=== PATIENT | male | born 1970 | race Caucasian/White ===

== ENCOUNTER 2018-10-15 21:20 | Observation (INO) | payer OTHER, SELFPAY ==
[2018-10-15 21:52] LABS: #Basophils 0.1 thou/uL (0.0-0.2); #Eosinphils 0.3 thou/uL (0.0-0.7); #Lymphocytes 3.9 thou/uL (1.20-3.40); #Monocytes 0.8 thou/uL (0.11-0.59); #Neutrophils 4.6 thou/uL (1.40-6.50); %Basophils 0.6 % (0.0-1.0); %Lymphocytes 40.6 % (21.0-51.0); %Monocytes 8.6 % (0.0-10.0); %Neutrophils 47.3 % (42.0-75.0); Hemoglobin 15.2 g/dL (14.0-18.0); Mean Corpuscular HGB CONC 33.5 g/dL (32.0-36.0); Mean Corpuscular Hemoglobin 27.4 pg (27.0-31.0); Mean Corpuscular Volume 81.8 fL (78.0-98.0); Mean Platelet Volume 8.4 fL (7.4-10.4); Platelet Count 188 thou/uL (130-400); RBC Distribution Width 12.6 % (11.5-14.5); Red Blood Cell (RBC) Count 5.53 mill/uL (4.70-6.10); White Blood Cell (WBC) Count 9.7 thou/uL (4.8-10.8)
[2018-10-15] MEDS ORDERED: Aspirin Chewable 81 MG TAB ONE (22:13)
[2018-10-15 22:15] LABS: ALT (SGPT) 41 U/L (8-55); AST (SGOT) 27 U/L (5-34); Albumin 4.4 g/dL (3.5-5.0); Alkaline Phosphatase 67 U/L (40-150); Anion Gap 13 mmol/L (10-20); BUN (Urea Nitrogen) 13 mg/dL (8.9-20.6); Bilirubin, Total 0.7 mg/dL (0.2-1.2); Calc. Creatinine Clearance 0 mL/min (70-130); Calcium 10.2 mg/dL (7.8-10.44); Carbon Dioxide 22 mmol/L (22-29); Chloride 107 mmol/L (98-107); Estimated GFR-MDRD 71; Globulin 2.9 g/dL (2.4-3.5); Glucose 204 mg/dL (70-105); Potassium 4.7 mmol/L (3.5-5.1); Protein, Total 7.3 g/dL (6.0-8.3); Sodium 137 mmol/L (136-145)
--- NOTE | 2018-10-15 22:56 | RAD ---
AP CHEST: 10/15/18 HISTORY: Chest pain. The lung ballesteros are clear. No infiltrate or vascular congestion. Heart size is normal. IMPRESSION: No acute finding. POS: OFF
[2018-10-16 00:36] VITALS: BMI 32.5
[2018-10-16] MEDS ORDERED: Dextrose 50% Abboject 50 ML SYRINGE SLOW IVP PRN (00:38)
[2018-10-16] MEDS ORDERED: HumaLOG 300 UNITS/3 ML VIAL SC PRN ×2 (00:38)
[2018-10-16] MEDS ORDERED: Dextrose 5% in Water 1,000 ML IV PRN (00:38)
[2018-10-16 01:35] LABS: Troponin I Less than 0.010 ng/mL (< 0.028)
[2018-10-16] MEDS ORDERED: Acetaminophen 650 MG Suppository PR PRN (01:55)
[2018-10-16] MEDS ORDERED: Acetaminophen 325 MG TAB PO PRN (01:55)
[2018-10-16] MEDS ORDERED: Sodium Chloride 0.9% 1,000 ML IV SCH (03:00)
[2018-10-16 03:48] LABS: #Eosinphils 0.3 thou/uL (0.0-0.7); #Lymphocytes 3.6 thou/uL (1.20-3.40); #Monocytes 0.7 thou/uL (0.11-0.59); #Neutrophils 3.8 thou/uL (1.40-6.50); %Basophils 0.1 % (0.0-1.0); %Eosinophils 3.2 % (0.0-10.0); %Monocytes 8.7 % (0.0-10.0); %Neutrophils 45.1 % (42.0-75.0); Hemoglobin 14.4 g/dL (14.0-18.0); Mean Corpuscular HGB CONC 34.9 g/dL (32.0-36.0); Mean Corpuscular Hemoglobin 27.9 pg (27.0-31.0); Mean Corpuscular Volume 79.9 fL (78.0-98.0); Platelet Count 173 thou/uL (130-400); RBC Distribution Width 12.3 % (11.5-14.5); Red Blood Cell (RBC) Count 5.15 mill/uL (4.70-6.10); White Blood Cell (WBC) Count 8.5 thou/uL (4.8-10.8)
[2018-10-16 03:56] LABS: Hemoglobin A1c 8.1 % (4.0-6.0)
[2018-10-16 04:06] LABS: Anion Gap 9 mmol/L (10-20); BUN (Urea Nitrogen) 16 mg/dL (8.9-20.6); Calc. Creatinine Clearance 137 mL/min (70-130); Calcium 10.2 mg/dL (7.8-10.44); Carbon Dioxide 25 mmol/L (22-29); Chloride 107 mmol/L (98-107); Estimated GFR-MDRD 80; Glucose 185 mg/dL (70-105); Potassium 4.1 mmol/L (3.5-5.1); Sodium 137 mmol/L (136-145)
--- NOTE | 2018-10-16 04:10 | HP ---
PRIMARY CARE PHYSICIAN: Chasidy Wade. CHIEF COMPLAINT: Chest pain and dizziness. HISTORY OF PRESENT ILLNESS: Mr. Salinas is a 48-year-old man who presents today after experiencing an episode of chest pain around 1:00 p.m., which lasted 4-5 seconds starting from the left side of his chest and coming briefly across to the right side of his chest. The patient states the pain is difficult to rate in terms of severity, but they eased and ranged at 4 for a couple of minutes before fully subsiding. He had a similar type of pain 1 week ago. The patient reports having intermittent episodes of dizziness, which has occurred a couple of times while he has been driving. Denies having any dizziness when standing and states it tends to happen suddenly. Today, it happened when he was making a turn while in the car. Unclear, if it has been associated with certain movements of his head or neck. He reports having mild headaches intermittently for the last couple of weeks. Today, the headaches have been mild, but constant. He denies having any vision disturbances or speech changes. Otherwise has been doing very well without complaints. Denies having fevers, chills, or sweats. No history of reports having a reduced appetite in recent days. No nausea or vomiting. No abdominal pain or cramping. No drastic weight changes. No urinary symptoms or bowel changes. The patient states when he was examined by the ED physician to have some nodularity or mass to the right side of his neck, which he had not noted previously. He states it is tender to palpation. The patient denies any difficulties with swallowing. ALLERGIES: NO KNOWN DRUG ALLERGIES. CURRENT MEDICATIONS: 1. Metformin. 2. Januvia. PAST MEDICAL HISTORY: Diabetes mellitus. PAST SURGICAL HISTORY: None. SOCIAL HISTORY: The patient reports social alcohol consumption. He denies any tobacco use or illicit drug use. PHYSICAL EXAMINATION: GENERAL: The patient appears well developed, well nourished, is in no acute distress. VITAL SIGNS: Temperature 97.3, pulse 80, respirations 18, blood pressure 121/85 , O2 sat 93% on room air. HEENT: Normocephalic and atraumatic. Pupils are equal, round and reactive to light. Sclerae without icterus. Oropharynx is clear. NEC: Notable for a nodularity in the right side of the lower neck, tender to palpation. Possibly representing cervical lymphadenopathy. The patient with slight soft tissue swelling noted in the right submandibular region at the angle of the jaw, nontender. LUNGS: Clear to auscultation bilaterally without any wheezes, rales, or rhonchi. CARDIAC: Regular rate and rhythm without audible murmurs, rubs, or gallops. ABDOMEN: Soft, nontender, nondistended. Normoactive bowel sounds present. No guarding or rigidity. No renal angle tenderness. EXTREMITIES: No lower leg swelling or edema. NEUROLOGIC: Alert and oriented x3. SKIN: No rash or jaundice. DIAGNOSTIC STUDIES: EKG done in the emergency room showed normal sinus rhythm with a heart rate of 86. LABORATORY DATA: Full blood count unremarkable. D-dimer was less than 0.27. Sodium 137, potassium 4.7, BUN 13, creatinine 1.11, GFR 71, calcium 10.2, total bilirubin 0.7, AST 27, ALT 31. Troponin negative x2. BNP 10.6. Albumin 4.4. IMAGING DATA: Chest x-ray showed no acute findings. IMPRESSION AND PLAN: Mr. Salinas is a pleasant 48-year-old man with a history of diabetes mellitus, who is being referred for management of the following. 1. Chest pain. The patient states the pain lasted a couple of seconds and radiated from the left side of his chest across to the right side. Otherwise, it did not radiate elsewhere. Pain has fully subsided. He had 1 similar episode 1 week ago. Troponins negative x2. EKG unremarkable. We will continue to monitor troponin. D-dimer is negative. BNP unremarkable. 2. Dizziness. The patient with short episodes of dizziness particularly while driving. The patient could potentially be slightly dehydrated given his decreased intake recently. GFR is 71 and creatinine normal at 1.11. We will give gentle hydration. We will check orthostatic blood pressures. We will add TSH to morning labs. We will add magnesium. A CT of the brain has been requested. Given the soft tissue swelling/nodularity noted on the right side of his neck. We will obtain a CT soft tissue neck. 3. Diabetes mellitus. We will resume home medications. Insulin sliding scale ordered. Monitor blood glucose. 4. Gastrointestinal prophylaxis. 5. Deep venous thrombosis prophylaxis with mechanical SCDs. The patient is ambulatory. 6. Code status, full. His surrogate decision maker is his , Merary Salinas. The patient's case is discussed with the attending, who agrees with plan of care as described above. Job ID: [id number] MTDD
[2018-10-16 04:16] LABS: Troponin I Less than 0.010 ng/mL (< 0.028)
[2018-10-16 07:04] LABS: Bacteria/HPF None Seen HPF (None Seen); Bilirubin Negative (Negative); Blood, Urine Negative (Negative); Clarity Clear (Clear); Glucose, Urine (Dipstick) Normal (Negative); Leukocyte Negative Leu/uL (Negative); Nitrite Negative (Negative); Protein, Urine (Dipstick) Negative (Neg-Trace); RBC/HPF 0-3 HPF (0-3); Squamous Epithelial None Seen HPF (0-3); WBC/HPF None Seen HPF (0-3)
[2018-10-16 07:06] LABS: Urine Culture Reflex No No
[2018-10-16 07:21] LABS: Amphetamine Not Detected (NotDetected); Barbiturates Screen Not Detected (NotDetected); Benzodiazepine Screen Not Detected (NotDetected); Cocaine Metabolite Screen Not Detected (NotDetected); Medtox Control Line Valid? VALID (VALID); Medtox Reader # READER 4; Methadone Not Detected (NotDetected); Methamphetamine Not Detected (NotDetected); Opiate Screen Not Detected (NotDetected); Oxycodone Screen Not Detected (NotDetected); Phencyclidine (PCP) Not Detected (NotDetected); THC/Cannabinoid Screen Not Detected (NotDetected); Tricyclic Screen Not Detected (NotDetected)
--- NOTE | 2018-10-16 07:53 | CT ---
PRELIMINARY REPORT/[facility]/EMERGENCY AFTER HOURS PROCEDURE: EXAM: CT Neck Without Contrast EXAM DATE/TIME: 10/16/2018 1:39 AM CLINICAL HISTORY: 48 years old, male; Neck pain; right-sided soreness of neck. There is a palpable nodule / mass. Per ordering Dr - no IV contrast. TECHNIQUE: Imaging protocol: Axial computed tomography images of the neck without contrast. Coronal and sagittal reformatted images were created and reviewed. COMPARISON: No relevant prior studies available. FINDINGS: Nasopharynx: Normal. Oropharynx: Normal. No significant tonsillar enlargement. Hypopharynx: Normal. Larynx: Normal. Normal epiglottis. Retropharyngeal space: Normal. Submandibular/Parotid glands: Normal. Glands are normal in size. Thyroid: Normal. No enlarged or calcified nodules. Lymph nodes: Approximate 1.9 x 2.2 x 3.5 cm lymph node within the lower right neck, posteromedial to the right sternocleidomastoid muscle, at approximately the C6 level. Areas of mild internal decreased density with trace external stranding which may reflect an adenitis. Trachea: Visualized trachea is unremarkable. Lungs: Normal as visualized. Bones/joints: Normal. No acute fracture. Soft tissues: Normal. No significant soft tissue swelling. IMPRESSION: Approximate 1.9 x 2.2 x 3.5 cm lymph node within the lower right neck, posteromedial to the right sternocleidomastoid muscle, at approximately the C6 level. Areas of mild internal decreased density with trace external stranding which may reflect an adenitis. Thank you for allowing us to participate in the care of your patient. Dictated and Authenticated by: Davi Lowery MD 10/16/2018 3:59 AM Central Time ([place] & [place]) FINAL REPORT CT NECK NONCONTRAST PERFORMED ON AN EMERGENCY BASIS: Date: 10/16/18 Time: 0140 hours HISTORY: Neck pain. Soreness. Palpable mass. FINDINGS: I agree with the preliminary by Dr. oLwery from [facility]. Lack of contrast limit s detail of soft tissues. No acute osseous abnormalities are demonstrated. Vertically oriented well-circumscribed oval mass at the medial right supraclavicular/base of neck level measures up to 3. 5 cm length. Favored to be an enlarged lymph node. Reactive/inflammatory process versus neoplasm. Please correlate with other clinical findings. Code QA. Transcribed Date/Time: 10/16/2018 8:14 AM
--- NOTE | 2018-10-16 07:57 | CT ---
PRELIMINARY REPORT/[facility]/EMERGENCY AFTER HOURS PROCEDURE: EXAM: CT Head Without Contrast EXAM DATE/TIME: 10/16/2018 1:36 AM CLINICAL HISTORY: 48 years old, male; Patient HX: Dizziness x couple weeks. PT states it just happens randomly doesn't seem to have a trigger TECHNIQUE: Imaging protocol: Computed tomography images of the head without contrast. COMPARISON: No relevant prior studies available. FINDINGS: Brain: No acute intracranial hemorrhage or mass effect. No definite acute infarct by CT. MRI could be more sensitive/specific for detection, as clinically di rected. Ventricles: Ventricle size is normal for age. Bones/joints: No definite acute skull fracture. Sinuses: Included paranasal sinuses are essentially clear. Mastoid air cells: No significant acute finding. IMPRESSION: 1. No acute intracranial bleed or mass effect. 2. No definite acute infarct by CT, see above. 3. Other findings discussed above. Thank you for allowing us to participate in the care of your patient. Dictated and Authenticated by: Willie Parmar MD 10/16/2018 2:53 AM Central Time ([place] & [place]) FINAL REPORT EMERGENCY AFTER HOURS CT BRAIN WITHOUT CONTRAST: Date: 10/16/18 FINDINGS/IMPRESSION: I agree with the findings and impression given in the preliminary report per [facility] physician. No evide nce of acute intracranial abnormality.
[2018-10-16] MEDS ORDERED: Famotidine 20 MG TAB PO SCH (09:00)
--- NOTE | 2018-10-16 12:51 | NM ---
Radionucleotide stress and rest myocardial perfusion scan with CT attenuation correction and SPECT im aging Left ventricular wall motion evaluation and ejection fraction HISTORY: Chest pain. FINDINGS: Olvin protocol. Total test time 7:00. There is homogeneous uptake of radiotracer throughout the left ventricular myocardium. No focal perfu ryan defect or reversibility. QGS analysis of gated SPECT images shows no focal wall motion abnormalities. Ejection fraction calcul ated at 60%. IMPRESSION: Normal myocardial perfusion scan. Normal LVEF.
[2018-10-16 13:29] VITALS: BP 125/83; TEMP 97.6
--- NOTE | 2018-10-16 14:18 | DIS ---
DATE OF ADMISSION: 10/15/2018 DATE OF DISCHARGE: 10/16/2018 TRANSFER OF CARE DISPOSITION: Discharged home. PRIMARY CARE PROVIDER: Amadeo Agee. FINAL DIAGNOSES: Chest pain, noncardiac; dizziness, resolved; mass in right neck; diabetes mellitus, type 2. DISCHARGE MEDICATIONS: Same as home medicines. 1. Metformin 1000 mg twice a day. 2. Januvia 100 mg a day. ALLERGIES: NO KNOWN DRUG ALLERGIES. DIET: Diabetic. PENDING AT TIME OF DISCHARGE: Nothing. CODE STATUS: Full. HOSPITAL COURSE: The patient admitted to [facility] with chest pain and dizziness. Chest pain was really brief. He was evaluated. Admitting laboratory; metabolic profile normal except for blood sugar 204. Troponins were normal. Hemoglobin A1c was 8.1. CBC was normal. D-dimer was less than 0.27, ruling out pulmonary emboli. Toxicology screen was done for some reason, it was normal. Admitting EKG showed normal sinus rhythm. No acute abnormality. Chest x-ray was clear. He underwent a nuclear medicine cardiac stress test, which was normal. Other laboratory done while he was here. TSH is normal at 1.69. BNP was 10.6. His blood pressure has been normal. He has had no orthostasis while in the hospital. CT of his neck revealed a well-circumscribed oval mass, right medial supraclavicular area measuring up to 3.5 cm, favored to be an enlarged lymph node. Results of the stress test were discussed with Mr. Salinas. He was comfortable with that. I discussed having his PCP, Dr. Agee evaluate and send him to ENT for potential biopsy of this neck mass. He was agreeable with that. He is being discharged home. No consultations. No procedures. Job ID: [id number]
[2018-10-17] MEDS ORDERED: Alogliptin 25 MG TAB PO SCH (09:00)
== END 2018-10-16 14:49 | disposition home or self-care (01) ==
LOC: ERS 21:20 → 2SW 22:45
PROVIDERS: ADMIT Hospitalist; ATTEND Hospitalist
DX: R07.9 Chest pain, unspecified (principal); R42 Dizziness and giddiness; E11.9 Type 2 diabetes mellitus without complications; R22.1 Localized swelling, mass and lump, neck; Z79.84 Long term (current) use of oral hypoglycemic drugs; Z79.899 Other long term (current) drug therapy
CPT/HCPCS: 36415; 70450; 70490; 71045; 78452; 80048; 80053; 80306; 81001; 82550; 83036; 83880; 84443; 84484; 85025; 85379; 93005; 93017; A9500; G0378